=== PATIENT | male | born 1985 | race Caucasian/White ===

== ENCOUNTER 2024-11-14 07:09 | Emergency (ER) | payer OTHER ==
[2024-11-14 08:10] VITALS: BP 137/84; PULSE 89; RESP 20; TEMP 98.9; BMI 23.6
== END 2024-11-14 08:05 | disposition home or self-care (01) ==
LOC: JER 07:09 → JERFT 07:09
DX: A60.01 Herpesviral infection of penis (principal); N35.919 Unspecified urethral stricture, male, unspecified site; R39.12 Poor urinary stream; N48.89 Other specified disorders of penis
CPT/HCPCS: 99283-25